=== PATIENT | female | born 1990 ===

== ENCOUNTER 2017-01-18 13:58 | Emergency (ER) | payer MEDICAID ==
[2017-01-18 13:58] VITALS: BMI 43.9
[2017-01-18] MEDS ORDERED: Aspirin 325 mg EC Tablets PO STA (14:44)
--- NOTE | 2017-01-18 14:45 | C.PDOC ---
History Of Present Illness 26 year old patient presents to the ED complaining of intermittent episodes of chest pain since August 2016. Patient states she was seen in another ER about 1 month for the same complaint and was told her work up was normal. Patient complains of sternal chest pain today. Patient denies trauma, fall, palpitations , shortness of breath, nausea, vomiting, numbness, weakness, headache or dizziness. Time Seen by Provider: 01/18/17 14:12 Chief Complaint (Nursing): Chest Pain History Per: Patient History/Exam Limitations: no limitations Onset/Duration Of Symptoms: Intermittent Episodes (since August 2016) Current Symptoms Are (Timing): Still Present Context: Other Severity: Mild Pain Scale Rating Of: 3 Quality: "Pain" Exacerbating Factors: None Alleviating Factors: None Recent travel outside of the [place]: No Past Medical History Reviewed: Historical Data, Nursing Documentation, Vital Signs Vital Signs: Last Vital Signs Temp 98.2 F 01/18/17 16:16 Pulse 70 01/18/17 16:16 Resp 15 01/18/17 16:16 BP 105/59 L 01/18/17 16:16 Pulse Ox 98 01/18/17 18:47 - Medical History PMH: Asthma, HTN (not on meds) Family History: States: Unknown Family Hx - Social History Hx Tobacco Use: No Hx Alcohol Use: No Hx Substance Use: No - Immunization History Hx Tetanus Toxoid Vaccination: No Hx Influenza Vaccination: No Hx Pneumococcal Vaccination: No Review Of Systems Except As Marked, All Systems Reviewed And Found Negative. Cardiovascular: Positive for: Chest Pain. Negative for: Palpitations Respiratory: Negative for: Shortness of Breath Gastrointestinal: Negative for: Nausea, Vomiting Neurological: Negative for: Weakness, Numbness, Headache, Dizziness Physical Exam - Physical Exam Appears: Non-toxic, No Acute Distress Skin: Warm, Dry Head: Atraumatic, Normacephalic Oral Mucosa: Moist Neck: Normal ROM, Supple Chest: Symmetrical, No Tenderness Cardiovascular: Rhythm Regular Respiratory: Normal Breath Sounds, No Rales, No Rhonchi, No Wheezing Gastrointestinal/Abdominal: Soft, No Tenderness Back: Normal Inspection, No CVA Tenderness Extremity: Normal ROM Neurological/Psych: Oriented x3, Normal Motor, Normal Sensation Gait: Steady ED Course And Treatment - Laboratory Results Result Diagrams: 01/18/17 14:50 01/18/17 14:50 ECG: Interpreted By Me ECG Rhythm: Sinus Rhythm ECG Interpretation: Normal Rate From EC O2 Sat by Pulse Oximetry: 98 (room air) Pulse Ox Interpretation: Normal - Radiology CXR: Interpreted by Me, Viewed By Me Progress Note: Plan: EKG, Labs, Chest x-ray, Ecotrin. Upon reassessment, patient is resting comfortably, is no longer having chest pain. Patient is being discharged home and is being advised to follow up with physician/clinic in 1-2 days. Return if symptoms worsen/persist. Disposition Counseled Patient/Family Regarding: Studies Performed, Diagnosis, Need For Followup - Disposition Referrals: [facility] [Outside] [facility] [Outside] Rajinder Monahan MD [Staff Provider] - Mikey Sotelo MD [Staff Provider] - Disposition: HOME/ ROUTINE Disposition Time: 16:02 Condition: STABLE Additional Instructions: FOLLOW UP WITH PMD/CLINIC FOR FURTHER EVALUATION AND EARLY INTERVENTIONIST AND INSURANCE POLICY ISSUE CLERK REFERRAL. IF SYMPTOMS GET WORSE OR ANY NEW CONCERNING SYMPTOMS DEVELOP RETURN TO ED. Prescriptions: Famotidine [Pepcid] 20 mg PO BID #20 tab Instructions: Chest Pain (ED) Forms: General Discharge Instructions - POA Present On Arrival: Blood Incompatibility - Clinical Impression Clinical Impression: Chest pain - PA / JAVASCRIPT APPLICATION DEVELOPER / Resident Statement MD/DO has reviewed & agrees with the documentation as recorded. - Scribe Statement The provider has reviewed the documentation as recorded by the Scribe Renee Gray All medical record entries made by the Scribe were at my direction and personally dictated by me. I have reviewed the chart and agree that the record accurately reflects my personal performance of the history, physical exam, medical decision making, and the department course for this patient. I have also personally directed, reviewed, and agree with the discharge instructions and disposition.
[2017-01-18 14:55] LABS: BASO % 0.3 % (0.0-2.0); EOS # 0.1 K/uL (0.0-0.7); EOS % 1.4 % (0.0-4.0); HEMATOCRIT 34.8 % (34.0-47.0); LYMPH # 2.8 K/uL (1.0-4.3); LYMPH % 32.4 % (20.0-40.0); MEAN CELL VOLUME 75.8 fL (81.0-99.0); MEAN CORPUSCULAR HEMOGLOBIN 23.9 pg (27.0-31.0); MEAN CORPUSCULAR HGB CONC 31.5 g/dL (33.0-37.0); MEAN PLATELET VOLUME 8.7 fL (7.2-11.7); MONO # 0.4 K/uL (0.0-0.8); MONO % 5.2 % (0.0-10.0); RED CELL DISTRIBUTION WIDTH 14.7 % (11.5-14.5); WHITE BLOOD COUNT 8.5 K/uL (4.8-10.8)
[2017-01-18] MEDS ORDERED: Aspirin 325 mg EC Tablets PO ONE (14:57)
[2017-01-18 15:05] LABS: CHLORIDE 104 mmol/L (98-107); POTASSIUM 3.8 mmol/L (3.6-5.2); SODIUM 139 mmol/L (132-148)
[2017-01-18 15:07] LABS: BILIRUBIN,TOTAL 0.8 mg/dL (0.2-1.3); GFR AFRICAN-AMERICAN > 60
[2017-01-18 15:08] LABS: ALB/GLOB RATIO 1.2 (1.0-2.1); ALKALINE PHOSPHATASE 74 U/L (38-126); ALT/SGPT 12 U/L (9-52); AST/SGOT 16 U/L (14-36); BLOOD UREA NITROGEN 13 mg/dL (7-17); CALCIUM 8.7 mg/dl (8.6-10.4); CARBON DIOXIDE 25 mmol/L (22-30); GLUCOSE,RANDOM 91 mg/dL (65-105); TOTAL PROTEIN 7.2 g/dL (6.3-8.3)
[2017-01-18 16:17] VITALS: BP 105/59; PULSE 70; RESP 15; TEMP 98.2; O2SAT 98
--- NOTE | 2017-01-18 16:17 | RAD ---
PROCEDURE: CHEST RADIOGRAPH, 1 VIEW HISTORY: chest pain COMPARISON: 08/02/2014 FINDINGS: LUNGS: Mild venous congestion with bibasilar airspace opacities. Prominent breast shadows. Correlation with lateral view may be helpful. PLEURA: As above. CARDIOVASCULAR: Mild cardiomegaly. OSSEOUS STRUCTURES: No significant abnormalities. VISUALIZED UPPER ABDOMEN: Normal. OTHER FINDINGS: None. IMPRESSION: Mild venous congestion with bibasilar airspace opacities. Prominent breast shadows. Correlation with lateral view may be helpful.
--- NOTE | 2017-01-19 14:15 | CARD ---
APPROVED REPORT EKG Measurement Heart [id number] <Conclusion> Normal sinus rhythm Normal ECG
== END 2017-01-18 16:17 | disposition home or self-care (01) ==
LOC: C.ER 13:58
DX: R07.89 Other chest pain (principal)

== ENCOUNTER 2017-03-17 09:35 | Emergency (ER) | payer MEDICAID ==
[2017-03-17 09:36] VITALS: BMI 43.9
[2017-03-17 09:46] VITALS: BP 121/83; PULSE 79; RESP 20; TEMP 98.7; O2SAT 98
[2017-03-17] MEDS ORDERED: Naproxen 550 mg Tab PO STA (10:01)
--- NOTE | 2017-03-17 10:04 | C.PDOC ---
History Of Present Illness 26 y/o female presents to ED with complaints of left elbow pain radiating to left hand for 4 days. Patient states the pain feels like a tingling sensation in the left 5th digit. 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 She denies falls/injuries, rash, fever. Time Seen by Provider: 03/17/17 09:47 Chief Complaint (Nursing): Upper Extremity Problem/Injury History Per: Patient History/Exam Limitations: no limitations Onset/Duration Of Symptoms: Days Current Symptoms Are (Timing): Still Present Quality: "Pain" Past Medical History Reviewed: Historical Data, Nursing Documentation, Vital Signs Vital Signs: Last Vital Signs Temp 98.7 F 03/17/17 09:43 Pulse 79 03/17/17 09:43 Resp 20 03/17/17 09:43 BP 121/83 03/17/17 09:43 Pulse Ox 98 03/17/17 10:39 - Medical History PMH: Asthma, HTN Family History: States: No Known Family Hx - Social History Hx Tobacco Use: No Hx Alcohol Use: No Hx Substance Use: No - Immunization History Hx Tetanus Toxoid Vaccination: No Hx Influenza Vaccination: No Hx Pneumococcal Vaccination: No Review Of Systems Except As Marked, All Systems Reviewed And Found Negative. Constitutional: Negative for: Fever, Chills Musculoskeletal: Positive for: Arm Pain, Hand Pain Skin: Negative for: Rash Neurological: Negative for: Weakness, Numbness Physical Exam - Physical Exam Appears: Well, Non-toxic, No Acute Distress Skin: Normal Color, Warm Head: Normacephalic Oral Mucosa: Moist Cardiovascular: Rhythm Regular Respiratory: Normal Breath Sounds, No Rales, No Rhonchi, No Wheezing Extremity: Normal ROM (Left elbow), Tenderness (Tenderness to palpation at left lateral epicondyle (left elbow)), Capillary Refill (<2 seconds all digits ), No Deformity, No Swelling, Other (no erythema/swelling/warmth) Pulses: Left Radial: Normal, Right Radial: Normal Neurological/Psych: Oriented x3, Normal Sensation ED Course And Treatment O2 Sat by Pulse Oximetry: 98 (RA) Pulse Ox Interpretation: Normal Progress Note: Patient given PO Naprosyn for pain, and pao wrap applied to left elbow by inorganic chemical technician. Patient given Rx for Naprosyn and was instructed to follow up with orthopedics within 1 week. She understands she should return to ED if symptoms worsen. Reevaluation Time: 10:10 Reassessment Condition: Improved Disposition Counseled Patient/Family Regarding: Diagnosis, Need For Followup, Rx Given - Disposition Referrals: Mehdi Bender III, MD [Staff Provider] - [facility] [Outside] [facility] [Outside] Disposition: HOME/ ROUTINE Disposition Time: 10:10 Condition: STABLE Additional Instructions: FOLLOW UP WITH ORTHOPEDICS WITHIN 1 WEEK USE MEDICATIONS NEEDED FOR PAIN RETURN TO ER IF SYMPTOMS WORSEN Prescriptions: Naproxen [Naprosyn Tab] 375 mg PO BID PRN #20 tab PRN Reason: pain Instructions: Tennis Elbow (ED) Forms: Work Excuse - POA Present On Arrival: None - Clinical Impression Clinical Impression: Lateral epicondylitis, left elbow - Scribe Statement The provider has reviewed the documentation as recorded by the Fritz Scott All medical record entries made by the Averyibrufino were at my direction and personally dictated by me. I have reviewed the chart and agree that the record accurately reflects my personal performance of the history, physical exam, medical decision making, and the department course for this patient. I have also personally directed, reviewed, and agree with the discharge instructions and disposition.
[2017-03-17] MEDS ORDERED: Naproxen 550 mg Tab PO ONE (10:08)
== END 2017-03-17 10:15 | disposition home or self-care (01) ==
LOC: C.ER 09:35
DX: M77.12 Lateral epicondylitis, left elbow (principal)

== ENCOUNTER 2017-10-07 17:29 | Emergency (ER) | payer MEDICAID ==
[2017-10-07 17:29] VITALS: BMI 43.9
[2017-10-07] MEDS ORDERED: Albuterol 0.083% Inhal Sol (2.5 mg/3 mL) UD IH STA (18:30)
[2017-10-07] MEDS ORDERED: Albuterol-Ipratrop 3 mg / 0.5 (3 ml) UD ONE (18:42)
--- NOTE | 2017-10-07 18:53 | C.PDOC ---
History Of Present Illness 27 yo female w/PMHx of Asthma, Lupus, come in for evaluation of cold sx associated with fever, bodyaches, runny nose, dry cough gradually developed for past 2 days. Pt reports, today developed some chest pain describes as " tight sensation" worse with cough. Otherwise, pt denies severe headache, dizziness, drooling, neck pain, SOB, dyspnea, wheezing, abd. pain, N/V/D, UTI sx. Ambulate to Ed for evaluation, not in any apparent distress. Time Seen by Provider: 10/07/17 17:50 Chief Complaint (Nursing): Fever History Per: Patient Past Medical History Reviewed: Historical Data, Nursing Documentation, Vital Signs Vital Signs: Last Vital Signs Temp 98.6 F 10/07/17 17:36 Pulse 108 H 10/07/17 17:36 Resp 18 10/07/17 17:36 BP 106/70 10/07/17 17:36 Pulse Ox 100 10/07/17 18:57 - Medical History PMH: Asthma, HTN Family History: States: Unknown Family Hx - Social History Hx Tobacco Use: No Hx Alcohol Use: No Hx Substance Use: No - Immunization History Hx Tetanus Toxoid Vaccination: No Hx Influenza Vaccination: No Hx Pneumococcal Vaccination: No Review Of Systems Except As Marked, All Systems Reviewed And Found Negative. Constitutional: Positive for: Fever, Malaise ENT: Positive for: Nose Discharge, Nose Congestion, Throat Pain. Negative for: Ear Discharge Cardiovascular: Positive for: Chest Pain. Negative for: Palpitations, Light Headedness Respiratory: Positive for: Cough. Negative for: Shortness of Breath, Wheezing Gastrointestinal: Negative for: Nausea, Vomiting, Abdominal Pain Genitourinary: Negative for: Dysuria, Incontinence Musculoskeletal: Negative for: Neck Pain, Back Pain Skin: Negative for: Rash Neurological: Negative for: Weakness, Altered Mental Status Physical Exam - Physical Exam Appears: Well, Non-toxic, No Acute Distress Skin: Normal Color, Warm, Dry, No Rash Head: Normacephalic Eye(s): bilateral: PERRL Ear(s): Bilateral: Normal Nose: No Flaring, Discharge (scant clear B/L) Oral Mucosa: Moist Throat: No Erythema, No Drooling Neck: Trachea Midline, Supple, Other ((-) meningeal sign) Cardiovascular: Rhythm Regular Respiratory: No Decreased Breath Sounds, No Accessory Muscle Use, No Stridor, No Wheezing Gastrointestinal/Abdominal: Soft, No Tenderness, No Distention, No Guarding Back: No CVA Tenderness Extremity: Normal ROM, No Deformity, No Swelling Neurological/Psych: Oriented x3, Normal Speech ED Course And Treatment ECG: Interpreted By Me, Viewed By Me ECG Rhythm: Sinus Rhythm Interpretation Of ECG: Sinus tachy@108/min, NAD, T wave inversion in III, no acute ST-T changes. O2 Sat by Pulse Oximetry: 100 Pulse Ox Interpretation: Normal - Radiology CXR: Interpreted by Me, Viewed By Me CXR Interpretation: Yes: No Acute Disease Progress Note: On re-eval, pt is afebrile, hemodynamicaly stable. NOn-toxic. Tolerate PO well in ED. PulsEOx 100% RA. ENT: no acute findings. neck: Supple , (-) meningeal sign. Lungs: CTA B/L, BS equal B/L. Abd: benign. Neurologicaly intact. CXR review and appears normal. Pt has clinical findings c/w Influenza-like illness, asthma. Pt advised onc ourse of ds. ref. to f/u with PMD in 2-3 days for re-eval,. return to ED if any worsening or new changes. Disposition Counseled Patient/Family Regarding: Studies Performed, Diagnosis, Need For Followup, Rx Given - Disposition Referrals: Se Lyon, CAMACHO, RUG BACKING STENCILER [Advanced Practice Nurse] - Disposition: HOME/ ROUTINE Disposition Time: 19:20 Condition: STABLE Additional Instructions: TAKE MEDICATION PRESCRIBED BEDREST, ENCOURAGE FLUIDS RETURN TO ED IF ANY WORSENING OR NEW CHANGES. Prescriptions: Albuterol HFA [Ventolin HFA 90 mcg/actuation (8 g)] 1 puff IH Q6 #1 inhaler Oseltamivir Phosphate [Tamiflu] 75 mg PO BID #10 capsule Prednisone [Deltasone] 40 mg PO DAILY #6 tablet Promethazine/Codeine [Phenergan/Codeine Oral Syrup] 10 ml PO TID #60 ml Instructions: Influenza (ED), Asthma (ED) Forms: [facility] (Danish), Work Excuse - Clinical Impression Clinical Impression: Influenza-like illness, Asthma
[2017-10-07] MEDS ORDERED: Promethazine/Cod 6.25mg-10mg/5ml Syr UD PO STA (18:57)
[2017-10-07] MEDS ORDERED: Promethazine/Cod 6.25mg-10mg/5ml Syr UD ONE (19:41)
[2017-10-07 19:52] VITALS: BP 123/69; PULSE 78; RESP 16; TEMP 100.3; O2SAT 98
--- NOTE | 2017-10-08 08:43 | RAD ---
Chest x-ray two views History: Cough. Comparison: 01/18/2017 Findings: Mild venous congestion. Cardiomegaly. Degenerative changes in the spine and shoulders. Impression: Mild venous congestion. Cardiomegaly.
== END 2017-10-07 19:51 | disposition home or self-care (01) ==
LOC: C.ER 17:29
DX: J45.909 Unspecified asthma, uncomplicated (principal); J11.1 Influenza due to unidentified influenza virus with other respiratory manifestations

== ENCOUNTER 2017-12-07 22:52 | Emergency (ER) | payer MEDICAID ==
[2017-12-07 22:52] VITALS: BMI 43.9
[2017-12-07 23:14] VITALS: BP 136/72; PULSE 72; RESP 22; TEMP 97.3; O2SAT 99
--- NOTE | 2017-12-07 23:38 | C.PDOC ---
History Of Present Illness 27 year old female presents to the ED complaining of right shoulder pain radiating down her arm, onset today at work. No fall or injury. 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 Denies associated numbness, tingling, or chest pain. She reports taking 800 mg of Motrin this afternoon with no relief. Time Seen by Provider: 12/07/17 23:14 Chief Complaint (Nursing): Upper Extremity Problem/Injury History Per: Patient History/Exam Limitations: no limitations Onset/Duration Of Symptoms: Days (x1) Current Symptoms Are (Timing): Still Present Past Medical History Reviewed: Historical Data, Nursing Documentation, Vital Signs Vital Signs: Last Vital Signs Temp 97.3 F L 12/07/17 23:11 Pulse 72 12/07/17 23:11 Resp 22 12/07/17 23:11 BP 136/72 12/07/17 23:11 Pulse Ox 99 12/08/17 00:24 - Medical History PMH: Asthma, HTN Surgical History: No Surg Hx Family History: States: Unknown Family Hx - Social History Hx Tobacco Use: No Hx Alcohol Use: No Hx Substance Use: No - Immunization History Hx Tetanus Toxoid Vaccination: No Hx Influenza Vaccination: No Hx Pneumococcal Vaccination: No Review Of Systems Cardiovascular: Negative for: Chest Pain Musculoskeletal: Positive for: Shoulder Pain (right), Arm Pain (right) Neurological: Negative for: Weakness, Numbness, Other (tingling) Physical Exam - Physical Exam Appears: Non-toxic, No Acute Distress Skin: Warm, Dry, No Rash Head: Atraumatic, Normacephalic Eye(s): bilateral: Normal Inspection Extremity: Normal ROM, Tenderness (minimal tenderness to the right shoulder), Capillary Refill (normal), No Deformity Pulses: Left Radial: Normal, Right Radial: Normal Neurological/Psych: Oriented x3, Normal Speech, No Other (focal deficits) ED Course And Treatment O2 Sat by Pulse Oximetry: 99 (RA) Pulse Ox Interpretation: Normal Medical Decision Making Medical Decision Making: Impression: Right shoulder pain Plan: * Flexeril 10 mg PO On reevaluation, patient reports improvement in pain. Patient counseled regarding diagnosis of shoulder strain. Will discharge home with prescriptions for cyclobenzaprine. Disposition Counseled Patient/Family Regarding: Diagnosis, Need For Followup, Rx Given - Disposition Referrals: [facility] [Outside] [facility] [Outside] Disposition: HOME/ ROUTINE Disposition Time: 23:38 Condition: GOOD Additional Instructions: Please apply ice or heat to area 15 minutes three times a day. Take Motrin as needed for pain every 6 hours, with food to not upset stomach. take flexeril for muscle pain/strain. Follow up with orthopedic if pain persists over one week. Prescriptions: Cyclobenzaprine [Cyclobenzaprine HCl] 10 mg PO TID #21 tab Instructions: Muscle Strain Forms: [facility] (Thai), Work Excuse - POA Present On Arrival: None - Clinical Impression Clinical Impression: Right shoulder strain - PA / DIETARY SERVICE AIDE / Resident Statement MD/DO has reviewed & agrees with the documentation as recorded. - Scribe Statement The provider has reviewed the documentation as recorded by the Scribe (Soila Laird) All medical record entries made by the Scribe were at my direction and personally dictated by me. I have reviewed the chart and agree that the record accurately reflects my personal performance of the history, physical exam, medical decision making, and the department course for this patient. I have also personally directed, reviewed, and agree with the discharge instructions and disposition.
== END 2017-12-07 23:46 | disposition home or self-care (01) ==
LOC: C.ER 22:52
DX: S46.911A Strain of unspecified muscle, fascia and tendon at shoulder and upper arm level, right arm, initial encounter (principal); X50.9XXA Other and unspecified overexertion or strenuous movements or postures, initial encounter

== ENCOUNTER 2018-03-27 12:31 | Emergency (ER) | payer MEDICAID ==
[2018-03-27 12:31] VITALS: BMI 43.9
[2018-03-27 12:56] VITALS: BP 105/55; PULSE 82; RESP 18; TEMP 98.4; O2SAT 96
--- NOTE | 2018-03-27 13:13 | C.PDOC ---
History Of Present Illness 27 y/o female, with Hx of occasional headaches, presents to ED c/o headache since yesterday. Notes having prior diagnosis of sinus headache. Pt has outside MRI results that shows nasal congestion. She states she did not take anything for her headache in the last 2 days. Notes she has previously taken Claritin for congestion but has not taken any this season. Denies fever, or other complaints. Time Seen by Provider: 03/27/18 13:08 Chief Complaint (Nursing): Headache History Per: Patient History/Exam Limitations: no limitations Past Medical History Reviewed: Historical Data, Nursing Documentation, Vital Signs Vital Signs: Last Vital Signs Temp 98.4 F 03/27/18 12:51 Pulse 82 03/27/18 12:51 Resp 18 03/27/18 12:51 BP 105/55 L 03/27/18 12:51 Pulse Ox 96 03/27/18 13:23 - Medical History PMH: Asthma, HTN, Migraine Family History: States: Unknown Family Hx - Social History Hx Tobacco Use: No Hx Alcohol Use: No Hx Substance Use: No - Immunization History Hx Tetanus Toxoid Vaccination: No Hx Influenza Vaccination: No Hx Pneumococcal Vaccination: No Review Of Systems Except As Marked, All Systems Reviewed And Found Negative. Constitutional: Negative for: Fever, Chills Eyes: Negative for: Vision Change Cardiovascular: Negative for: Chest Pain, Palpitations Respiratory: Negative for: Cough, Shortness of Breath Gastrointestinal: Negative for: Nausea, Vomiting Neurological: Positive for: Headache. Negative for: Weakness, Numbness, Dizziness Physical Exam - Physical Exam Appears: Non-toxic, No Acute Distress, Other (morbidly obese) Skin: Normal Color, Warm, Dry Head: Atraumatic, Normacephalic Eye(s): bilateral: Normal Inspection, Other (no photophobia) Ear(s): Bilateral: Normal Nose: Other ((+)erythema, large turbinates) Oral Mucosa: Moist Tongue: Normal Appearing Lips: Normal Appearing Throat: Normal, No Erythema, No Exudate, No Drooling Neck: Normal ROM, Supple Cardiovascular: Rhythm Regular, No Murmur Respiratory: Normal Breath Sounds, No Rales, No Rhonchi, No Wheezing Gastrointestinal/Abdominal: Soft, No Tenderness Extremity: Normal ROM Neurological/Psych: Oriented x3, Normal Speech ED Course And Treatment O2 Sat by Pulse Oximetry: 96 (RA) Pulse Ox Interpretation: Normal Medical Decision Making Medical Decision Making: sinus headache, h/o same prior MRI for [place]'s + sinus inflammation no PO meds x 2 days "cause they don't work" [place]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, 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, 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 for similar many prior evals with normal w/u's Disposition Doctor Will See Patient In The: Office Counseled Patient/Family Regarding: Studies Performed, Diagnosis - Disposition Referrals: Se Lyon, CAMACHO, ENGINEERING SYSTEMS ANALYST [Advanced Practice Nurse] - Disposition: HOME/ ROUTINE Disposition Time: 13:16 Condition: GOOD Additional Instructions: nasal congestion: Continue Claritin 10 mg daily- take in the morning Flonase 1 spray to each nostril every 12 hours- reduces nasal congestion and frequency of Sinus Headaches Heaches: Motrin 400-600 mg every 6 hours as needed Tylenol 1000 mg every 6 hours as needed Follow-up w your PMD as needed. Instructions: Sinus Headache (DC) Forms: [employer] ([place]) - Clinical Impression Clinical Impression: Headache - Scribe Statement The provider has reviewed the documentation as recorded by the Scribe KP All medical record entries made by the Scribe were at my direction and personally dictated by me. I have reviewed the chart and agree that the record accurately reflects my personal performance of the history, physical exam, medical decision making, and the department course for this patient. I have also personally directed, reviewed, and agree with the discharge instructions and disposition.
== END 2018-03-27 13:25 | disposition home or self-care (01) ==
LOC: C.ER 12:31
DX: R51 Headache (principal)
CPT/HCPCS: 96372; 99283; J1885